=== PATIENT | female | born 1955 | race Caucasian/White ===

== ENCOUNTER 2020-11-07 13:50 | Outpatient (CLI) | payer OTHER, SELFPAY ==
--- NOTE | 2020-11-07 14:35 | CT_ITS ---
WS: [id number] LDCT LUNG CANCER SCREENING HISTORY: TOBACCO ABUSE TECHNIQUE: Axial imaging performed from the apices to 1 cm below the costophrenic angles. Coronal and sagittal reformats are submitted with axial MIP series. All CT scans at [facility] use at least one of these dose optimization techniques: automated exposure control; mA and/or kV adjustment per patient size (includes targeted exams where dose is matched to clinical indication); or iterativ e reconstruction. DLP: 51.42 mGy.cm DIvol: 1.58 mGy COMPARISON: 02/09/2018 Diagnostic quality: Satisfactory Lung Nodules: No pulmonary nodules or endobronchial lesions. Lungs: Mild emphysema. Heart: Normal. Other findings: None. CT/CT lung screening [id number] IMPRESSION: LUNG-RADS: 1-Negative FOLLOW UP: 12 Month: Continue annual screening with LDCT OTHER FINDINGS (S MODIFIER): None.
--- NOTE | 2020-11-07 15:07 | MM_ITS ---
WS: [email or web address] BILATERAL SCREENING DIGITAL MAMMOGRAM WITH CAD HISTORY: SCREENING COMPARISON: 06/08/2018 and 08/07/2013 Bilateral CC and MLO views submitted. Computer aided detection analyzed. Breast composition: There are scattered areas of fibroglandular density. No suspicious masses, microc alcifications or architectural distortion. MM/[id number] IMPRESSION: BI-RADS: 1-Negative FOLLOW UP: 1 Year Follow-up
== END 2020-11-07 13:51 | disposition home or self-care (01) ==
PROVIDERS: PCP Internal Medicine; Visit Provider Internal Medicine
DX: Z12.31 Encounter for screening mammogram for malignant neoplasm of breast (principal); Z12.2 Encounter for screening for malignant neoplasm of respiratory organs
CPT/HCPCS: 71271; 77067

== ENCOUNTER 2021-11-16 08:14 | Outpatient (CLI) | payer MEDICAID, SELFPAY ==
--- NOTE | 2021-11-16 08:21 | MM_ITS ---
WS: [email or web address] SCREENING DIGITAL TOMOSYNTHESIS MAMMOGRAM WITH CAD HISTORY: SCREENING COMPARISON: 11/07/2020 and 06/08/2018 Bilateral CC and MLO with tomosynthesis views submitted. Synthetic mammography reviewed. Computer aid ed detection analyzed. Breast composition: There are scattered areas of fibroglandular density. No suspicious masses, microc alcifications or architectural distortion. MM/[place] [id number] IMPRESSION: BI-RADS: 1-Negative FOLLOW UP: 1 Year Follow-up
--- NOTE | 2021-11-16 08:46 | CT_ITS ---
WS: [email or web address] LDCT LUNG CANCER SCREENING HISTORY: HX OF TOBACCO USE TECHNIQUE: Axial imaging performed from the apices to 1 cm below the costophrenic angles. Coronal and sagittal reformats are submitted with axial MIP series. All CT scans at [facility] use at least one of these dose optimization techniques: automated exposure control; mA and/or kV adjustment per patient size (includes targeted exams where dose is matched to clinical indication); or iterativ e reconstruction. DLP: 81.77 mGy.cm DIvol: Mean CTDIvol: 1.60 (mGy) COMPARISON: 11/07/2020, 02/09/2018 Diagnostic quality: Satisfactory Lung Nodules: 2 mm noncalcified nodule RIGHT upper lobe stable since 2018. No suspicious mass or enla rging mass or nodule. No endobronchial lesions. Lungs: Mild emphysema. Heart: Normal size heart. No pericardial effusion. Other findings: Partially calcified nodule RIGHT thyroid. No atherosclerosis aorta or enlargement. No adrenal mass. Prior cholecystectomy. CT/CT lung screening [id number] IMPRESSION: LUNG-RADS: 2-Benign Appearance or Behavior FOLLOW UP: 12 Month: Continue annual screening with LDCT OTHER FINDINGS (S MODIFIER): None.
== END 2021-11-16 08:15 | disposition home or self-care (01) ==
LOC: RAD 08:16
PROVIDERS: PCP Internal Medicine; Visit Provider Internal Medicine
DX: Z12.31 Encounter for screening mammogram for malignant neoplasm of breast (principal); Z12.2 Encounter for screening for malignant neoplasm of respiratory organs
CPT/HCPCS: 71271; 77063; 77067

== ENCOUNTER 2022-11-17 10:10 | Outpatient (CLI) | payer MEDICARE, SELFPAY ==
--- NOTE | 2022-11-17 10:23 | MM_ITS ---
WS: [email or web address] VIEWS: MLO and CC views both breasts. 3D digital tomosynthesis is also included in this exam. Comparison made with prior exam of 06/18/2005, 07/04/2007, 08/07/2013, 06/08/2018, 11/07/2020, 11/16/2021.. Findings: There was no sign of mass, architectural distortion or suspicious calcification in either breast. The breasts are almost entirely fatty. Impression: MM/[place] [id number] BI-RADS: 1-Negative FOLLOW-UP: 1 Year Follow-up This mammogram was also analyzed by the Computer Aided Detection System [employer] Im[employer] e Customer Support Consultant.
== END 2022-11-17 10:11 | disposition home or self-care (01) ==
PROVIDERS: PCP Internal Medicine; Visit Provider Internal Medicine
DX: Z12.31 Encounter for screening mammogram for malignant neoplasm of breast (principal)
CPT/HCPCS: 77063; 77067

== ENCOUNTER 2022-11-29 09:10 | Outpatient (CLI) | payer MEDICARE, SELFPAY ==
--- NOTE | 2022-11-29 09:29 | CT_ITS ---
WS: [email or web address] LDCT LUNG CANCER SCREENING TECHNIQUE: Noncontrast CT of the chest with coronal and sagittal reformatted images. CLINICAL INFORMATION: TOBACCO ABUSE, CONTINUOUS COMPARISON: CT 11/16/2021 DLP: 96.79 mGy.cm DIvol: Mean CTDIvol: 2.10 (mGy) All CT scans at [facility] use at least one of these dose optimization techniques: automat ed exposure control; mA and/or kV adjustment per patient size (includes targeted exams where dose is matched to clinical indication); or iterative reconstruction. FINDINGS: A few tiny stable noncalcified nodules RIGHT upper lobe. The largest measures approximately 3 mm unch anged. RIGHT middle lobe nodule measuring measuring 5 mm unchanged. Tiny subpleural nodule RIGHT lowe r lobe unchanged. A few tiny noncalcified nodules in the LEFT upper lobe and LEFT lower lobe unchange d. Calcified RIGHT thyroid nodule is stable. Normal caliber thoracic aorta. No mediastinal or hilar lymp hadenopathy. Cholecystectomy clips. Adrenal glands are normal. No axillary lymphadenopathy. IMPRESSION: CT/CT lung screening [id number] LUNG-RADS: 2-Benign Appearance or Behavior FOLLOW UP: 12 Month: Continue annual screening with LDCT
== END 2022-11-29 09:11 | disposition home or self-care (01) ==
PROVIDERS: PCP Internal Medicine; Visit Provider Internal Medicine
DX: Z12.2 Encounter for screening for malignant neoplasm of respiratory organs (principal); F17.210 Nicotine dependence, cigarettes, uncomplicated
CPT/HCPCS: 71271

== ENCOUNTER 2023-12-07 08:48 | Outpatient (CLI) | payer MEDICARE, SELFPAY ==
--- NOTE | 2023-12-07 08:55 | CT_ITS ---
WS: [email or web address] LDCT LUNG CANCER SCREENING HISTORY: NICOTINE DEPENDENCE,CIGARETTES TECHNIQUE: Axial imaging performed from the apices to 1 cm below the costophrenic angles. Coronal and sagittal reformats are submitted with axial MIP series. All CT scans at [facility] use at least one of these dose optimization techniques: automated exposure control; mA and/or kV adjustment per patient size (includes targeted exams where dose is matched to clinical indication); or iterativ e reconstruction. DLP: 83.51 mGy.cm DIvol: Mean CTDIvol: 2.00 (mGy) COMPARISON: 11/29/2022 Diagnostic quality: Satisfactory Lungs: There are a few scattered micronodules. 5 mm noncalcified nodule LEFT upper lobe. Reidentified is the 5 mm nodule in the periphery of the RIGHT middle lobe. No additional masses or increase in si ze of any mass. No endobronchial lesions. Heart: Normal size heart with no pericardial effusion.. No mediastinal or hilar adenopathy. Mild athe rosclerosis aorta. Other findings: Calcified RIGHT thyroid nodule 12 mm. Mild atherosclerosis aorta. Normal size pulmona ry artery. Small hiatal hernia. No destructive bone lesions. CT/CT lung screening [id number] IMPRESSION: LUNG-RADS: 2-Benign Appearance or Behavior FOLLOW UP: 12 Month: Continue annual screening with LDCT OTHER FINDINGS (S MODIFIER): None.
--- NOTE | 2023-12-07 08:55 | MM_ITS ---
WS: [email or web address] BILATERAL SCREENING DIGITAL TOMOSYNTHESIS MAMMOGRAM WITH CAD HISTORY: SCREENING COMPARISON: 11/17/2022, 11/16/2021 Bilateral CC and MLO views with tomosynthesis and synthetic mammography submitted. Computer aided det ection analyzed. Breast composition: There are scattered areas of fibroglandular density. No suspicious masses, microc alcifications or architectural distortion. MM/MM scr BI tomosynthesis [id number] IMPRESSION: BI-RADS: 1 - Negative. FOLLOW UP: 1 Year Follow-up
== END 2023-12-07 08:49 | disposition home or self-care (01) ==
LOC: RAD 08:49
PROVIDERS: PCP Internal Medicine; Visit Provider Internal Medicine
DX: Z12.31 Encounter for screening mammogram for malignant neoplasm of breast (principal); F17.210 Nicotine dependence, cigarettes, uncomplicated; R91.8 Other nonspecific abnormal finding of lung field
CPT/HCPCS: 71271; 77063; 77067

== ENCOUNTER 2024-02-27 13:48 | Inpatient (IN) | payer MEDICARE, SELFPAY ==
[2024-02-27] VITALS (10 sets, daily range): BP systolic 93–125; BP diastolic 53–104; PULSE 90–158; RESP 18; TEMP 36.8–38.6; O2SAT 93–99; BMI 33.5
--- NOTE | 2024-02-27 14:47 | ED_ITS ---
Documented by User: DIANA Crocker 02/27/24 16:53 HPI - General Adult 2 General: Chief complaint: Urogenital-Female Stated complaint: fever,n,v,boil, possible uti? Time Seen by Provider: 02/27/24 14:33 Source: patient Mode of arrival: ambulatory Limitations: no limitations History of Present Illness: Patient is a 68-year-old female presents to ED today along with family for concerns of a possible urinary tract infection. She is complaining of burning with urination. Has been on cefuroxime on 01/15 and macrobid 01/31 for two weeks. These were treated through [facility]. They also have a separate complaint of a possible boil to her perineal region. She states 6 years ago she had multiple boils that required surgical drainage. She states she squeezed the lesion yesterday and noticed output/discharge. Patient is complaining of diffuse body aches, fever yesterday of 101-afebrile since, and chills. She has no URI-like symptoms. No abdominal pain. She has not had any vomiting or diarrhea. She was slightly tachycardic upon arrival. Does have some back pain she's been uring a heating pad for. Onset (ago): day(s) Location: genitals Severity: mild Relieving factors: none Exacerbating factors: other (urination) Associated symptoms: Reports no associated symptoms; Deny chest pain, dyspnea, headache(s), malaise, nausea or vomiting Treatments prior to arrival: none Related Data Home Medications Medication Instructions Recorded Confirmed atorvastatin 80 mg tablet 80 mg PO DAILY 02/27/24 02/27/24 bupropion HCl 150 mg 24 hr tablet, 150 mg PO QAM 02/27/24 02/27/24 extended release exenatide microspheres 2 mg/0.85 2 mg SUBCUT Q7D 02/27/24 02/27/24 mL subcutaneous auto-injector (Bydeidra Raphael) hydroxyzine HCl 50 mg tablet 50 mg PO TID 02/27/24 02/27/24 insulin glargine 100 unit/mL (3 28 unit SUBCUT QPM 02/27/24 02/27/24 mL) subcutaneous pen (Lantus Solostar U-100 Insulin) lisinopril 2.5 mg tablet 2.5 mg PO DAILY 02/27/24 02/27/24 metformin 500 mg tablet,extended 500 mg PO TID 02/27/24 02/27/24 release 24 hr Allergies Allergy/AdvReac Type Severity Reaction Status Date / Time No Known Allergies Allergy Verified 02/27/24 14:18 Review of Systems 2 Const: Reports: fever(s), chills and body aches; Denies: fatigue or malaise ENMT: Denies: throat pain, odynophagia, ear or mastoid pain, nasal discharge, nasal congestion or sinus pain Card: Denies: chest pain Resp: Denies: dyspnea, productive cough, non-productive cough or chest congestion GI: Denies: abdominal pain, nausea, vomiting or diarrhea : Denies: flank pain, difficulty voiding, dysuria, urinary frequency, urinary urgency or urinary hesitancy Musc: Denies: neck pain, back pain, extremity pain, extremity swelling, joint pain or joint swelling Skin/Breast: Reports: other (perineal boil ) Neuro: Denies: headache(s), numbness in extremities, weakness in extremities or sensory changes PFSH ED 2 PFSH: Family History Mother CAD (coronary artery disease) Diabetes Father , AT AGE 72 ALCOHOLISM Chronic kidney disease (CKD) Brother Cancer LUNG CANCER Sister Cancer THROAT CANCER Social History Smoking and tobacco/nicotine status: light tobacco/nicotine user e-cigarettes Alcohol intake: unknown Substance/Drug Use: unknown Adopted: No Caregiver/support person: No Lives independently: No Household members: spouse Marital status: Current occupational status: employed Physical Exam 2 Const: COMMON NORMALS: no acute distress, patient oriented x3, no limitations and alert GENERAL APPEARANCE: cooperative ORIENTATION/CONSCIOUSNESS: Yes awake, Yes oriented to person, Yes oriented to place and Yes oriented to time Eye: COMMON NORMALS: no scleral icterus Neck/C-Spine: COMMON NORMALS: no lymphadenopathy Resp: COMMON NORMALS: normal respiratory effort and clear to auscultation bilaterally AUSCULTATION: clear to auscultation bilaterally Cardio: COMMON NORMALS: regular rate and regular rhythm RATE: regular rate RHYTHM: regular rhythm GI: COMMON NORMALS: Normal to inspection, nondistended, normoactive bowel sounds present, Soft to palpation and non-tender PALPATION: Yes Soft to palpation : COMMON NORMALS: Yes no CVA tenderness BLADDER/KIDNEY EXAM: Yes no CVA tenderness OTHER: large amount of scar tissue from previous surgeries 6 years ago; some vaginal atrophy; she points to an area on R labia majora that is tender-small fissure like area but I do not appreciate any obvious fluctuance/abscess formation Back/Pelvis: COMMON NORMALS: no CVA tenderness Extremity: GENERAL: Yes normal exam except as noted Neuro: COMMON NORMALS: patient oriented x3 SENSORIUM/ORIENTATION: Yes alert, Yes oriented to person, Yes oriented to place and Yes oriented to time Course 2 Vital Signs: Vital signs: Vital Signs Temperature 98.2 F 02/27/24 14:13 Pulse Rate 96 02/27/24 17:30 Respiratory Rate 18 02/27/24 14:13 Blood Pressure 118/61 02/27/24 17:30 Pulse Oximetry 96 02/27/24 17:30 Oxygen Delivery Me thod Room Air 02/27/24 17:30 MDM - General Adult Medical Decision Making Patient is a 68-year-old female here with complaints of burning with urination as well as for possible perineal abscess. I do not appreciate any obvious abscess clinically. UA with significant color interference from Azo use this morning. It does have a cloudy appearance with too numerous to count WBCs and 4+ bacteria. Her blood work overall is nonactionable. Her vital signs had remained stable during her stay and I had originally planned on discharging her. During repeat examination I noted blood pressure to be low with systolics anywhere from 80s-90s and diastolics in the 50s-60s. Will have RN check manual. Tried to attempt most recent UA cultures from [facility] but they are closed for holidays. Will add a lactate and blood cultures and start IV abx. Started IV fluids as well. Adding CT scan at this time. Care transferred to Rashad Nunez PA-C at shift change. ES Lab Data 02/27/24 15:37 02/27/24 15:37 Radiology Impressions Abdomen/Pelvis CT 02/27/24 16:40 IMPRESSION: 1. Findings above regarding the left kidney concerning for pyelonephritis and cystitis. Correlate with urinalysis to exclude cystitis/pyelonephritis combination. 2. Findings involving the central small bowel loops concerning for enteritis without evidence of bowel obstruction. 3. Incidental/chronic findings as above. COMMENTS: Consistent with the [place]'s Incidental Findings Committee white paper (J Am Tariq Radiol 2018): Any incidental renal lesion less than 1 cm or classified as too small to characterize, or any incidental cystic renal lesion characterized as simple-appearing, is likely benign. No follow-up imaging is recommended for these lesions per consensus recommendations based on imaging criteria. Laboratory Results WBC 12.52 10^3/uL (3.29-11.43) H 02/27/24 15:37 RBC 4.46 10^6/uL (3.85-5.65) 02/27/24 15:37 Hgb 10.40 g/dL (11.27-16.99) L 02/27/24 15:37 Hct 32.6 % (36-47) L 02/27/24 15:37 MCV 73.1 fl (85-98) L 02/27/24 15:37 MCH 23.3 pg (27-33) L 02/27/24 15:37 MCHC 31.9 g/dL (30-55) 02/27/24 15:37 RDW 19.0 % (12.1-15.1) H 02/27/24 15:37 Plt Count 368 10^3/cmm (157-399) 02/27/24 15:37 MPV 9.2 fL (7.4-10.4) 02/27/24 15:37 Neut % (Auto) 81.4 % 02/27/24 15:37 Lymph % (Auto) 7.3 % 02/27/24 15:37 [place] % (Auto) 10.0 % 02/27/24 15:37 Eos % (Auto) 0.3 % 02/27/24 15:37 Baso % (Auto) 0.6 % 02/27/24 15:37 Neut # (Auto) 10.20 10^3/uL (1.8-7.7) H 02/27/24 15:37 Lymph # (Auto) 0.9 10^3/uL (0.8-4.8) 02/27/24 15:37 [place] # (Auto) 1.3 10^3/uL (0.2-0.9) H 02/27/24 15:37 Eos # (Auto) 0.0 10^3/uL (0.0-0.8) 02/27/24 15:37 Baso # (Auto) 0.1 10^3/uL (0.0-0.1) 02/27/24 15:37 Nucleated RBC % (auto) 0 % 02/27/24 15:37 Nucleated RBCs # 0.0 /100WBC 02/27/24 15:37 Sodium 132 mmol/L (136-145) L 02/27/24 15:37 Potassium 3.3 mmol/L (3.5-5.1) L 02/27/24 15:37 Chloride 98 mmol/L (98-107) 02/27/24 15:37 Carbon Dioxide 22 mmol/L (22-29) 02/27/24 15:37 Anion Gap 15.3 (5-19) 02/27/24 15:37 BUN 12 mg/dL (8-23) 02/27/24 15:37 Creatinine 0.8 mg/dL (0.5-0.9) 02/27/24 15:37 GFR Calculation 71.8 mL/min (90-130) L 02/27/24 15:37 Glucose 128 mg/dL (65-115) H 02/27/24 15:37 Calculated Osmolality 275 mOsm/kg (285-295) L 02/27/24 15:37 Lactic Acid 1.3 mmol/L (0.5-2.2) 02/27/24 15:37 Calcium 8.9 mg/dL (8.5-10.5) 02/27/24 15:37 Total Bilirubin 0.7 mg/dL (0.15-1.2) 02/27/24 15:37 AST 14 U/L (0-32) 02/27/24 15:37 ALT 14 U/L (0-33) 02/27/24 15:37 Alkaline Phosphatase 138 U/L (35-105) H 02/27/24 15:37 Total Protein 7.3 g/dL (6.6-8.7) 02/27/24 15:37 Albumin 3.9 g/dL (3.5-5.2) 02/27/24 15:37 Globulin 3.4 g/dL (1.3-4.6) 02/27/24 15:[address] [place] (Yellow) A 02/27/24 14:40 Urine Appearance Slightly cloudy (CLEAR) 02/27/24 14:40 Urine pH TNP 02/27/24 14:40 Ur Specific [place] TNP 02/27/24 14:40 Urine Protein TNP 02/27/24 14:40 Urine Glucose (UA) TNP 02/27/24 14:40 Urine Ketones TNP 02/27/24 14:40 Urine Blood TNP 02/27/24 14:40 Urine Nitrate TNP 02/27/24 14:40 Urine Bilirubin TNP 02/27/24 14:40 Urine Urobilinogen TNP 02/27/24 14:40 Ur Leukocyte Esterase TNP 02/27/24 14:40 Urine RBC None /hpf (0-2) 02/27/24 14:40 Urine WBC Too numerous to cnt /hpf (0-5) H 02/27/24 14:40 Ur Squamous Epith Cells None /hpf (0-5) 02/27/24 14:40 Amorphous Sediment Not Reportable 02/27/24 14:40 Urine Bacteria 4+ /hpf (NONE) H 02/27/24 14:40 Coronavirus (PCR) Negative (Negative) 02/27/24 14:53 Influenza A (PCR) Negative (Negative) 02/27/24 14:53 Influenza Type B (PCR) Negative (Negative) 02/27/24 14:53 RSV (PCR) Negative (Negative) 02/27/24 14:53 Discharge Plan Discharge Patient Disposition: Placed in Observation Clinical Impression: Acute pyelonephritis Sign Out Sign Out Data: Patient Sign Out occurred on 02/27/24 at 17:07. Patient's care was discussed, and care was transferred from DIANA Crocker to DIANA Arnett. Coding Level of Care Code ED Billing Representative for Chg Fwd Documented by User: DIANA Arnett 02/27/24 18:46 HPI - General Adult 2 General: Chief complaint: Urogenital-Female Stated complaint: fever,n,v,boil, possible uti? Time Seen by Provider: 02/27/24 14:33 Related Data Home Medications Medication Instructions Recorded Confirmed atorvastatin 80 mg tablet 80 mg PO DAILY 02/27/24 02/27/24 bupropion HCl 150 mg 24 hr tablet, 150 mg PO QAM 02/27/24 02/27/24 extended release exenatide microspheres 2 mg/0.85 2 mg SUBCUT Q7D 02/27/24 02/27/24 mL subcutaneous auto-injector (Bydureon BCise) hydroxyzine HCl 50 mg tablet 50 mg PO TID 02/27/24 02/27/24 insulin glargine 100 unit/mL (3 28 unit SUBCUT QPM 02/27/24 02/27/24 mL) subcutaneous pen (Lantus Solostar U-100 Insulin) lisinopril 2.5 mg tablet 2.5 mg PO DAILY 02/27/24 02/27/24 metformin 500 mg tablet,extended 500 mg PO TID 02/27/24 02/27/24 release 24 hr Allergies Allergy/AdvReac Type Severity Reaction Status Date / Time No Known Allergies Allergy Verified 02/27/24 14:18 PFSH ED 2 PFSH: Family History Mother CAD (coronary artery disease) Diabetes Father , AT AGE 72 ALCOHOLISM Chronic kidney disease (CKD) Brother Cancer LUNG CANCER Sister Cancer THROAT CANCER Social History Smoking and tobacco/nicotine status: light tobacco/nicotine user e-cigarettes Alcohol intake: unknown Substance/Drug Use: unknown Adopted: No Caregiver/support person: No Lives independently: No Household members: spouse Marital status: Current occupational status: employed Course 2 Vital Signs: Vital signs: Vital Signs Temperature 98.2 F 02/27/24 14:13 Pulse Rate 96 02/27/24 17:30 Respiratory Rate 18 02/27/24 14:13 Blood Pressure 118/61 02/27/24 17:30 Pulse Oximetry 96 02/27/24 17:30 Oxygen Delivery Me thod Room Air 02/27/24 17:30 MDM - General Adult Medical Decision Making Patient is a 68-year-old female here with complaints of burning with urination as well as for possible perineal abscess. I do not appreciate any obvious abscess clinically. UA with significant color interference from Azo use this morning. It does have a cloudy appearance with too numerous to count WBCs and 4+ bacteria. Her blood work overall is nonactionable. Her vital signs had remained stable during her stay and I had originally planned on discharging her. During repeat examination I noted blood pressure to be low with systolics anywhere from 80s-90s and diastolics in the 50s-60s. Will have RN check manual. Tried to attempt most recent UA cultures from [facility] but they are closed for holidays. Will add a lactate and blood cultures and start IV abx. Started IV fluids as well. Adding CT scan at this time. Care transferred to Rashad Nunez PA-C at shift change. ES Care of patient transferred me by dayshift provider. This patient has had recurrent UTI failing treatment with Ceftin as well as Macrobid. Prior to discharge she was found to be hypotensive, with continuing tachycardia. Further workup ensued, her lactic was normal but she was started on sepsis bolus of fluids as well as Rocephin through her IV. CT was ordered showing signs of a pyelonephritis, failing outpatient therapy I spoke to Dr. Tovar who agrees to accept the patient to the hospital for IV antibiotics and further monitoring. Patient agrees with plan for admission and all other questions and concerns addressed. Dr. Koehler putting in admit orders at this time. Lab Data 02/27/24 15:37 02/27/24 15:37 Radiology Impressions Abdomen/Pelvis CT 02/27/24 16:40 IMPRESSION: 1. Findings above regarding the left kidney concerning for pyelonephritis and cystitis. Correlate with urinalysis to exclude cystitis/pyelonephritis combination. 2. Findings involving the central small bowel loops concerning for enteritis without evidence of bowel obstruction. 3. Incidental/chronic findings as above. COMMENTS: Consistent with the [place] [employer]'s Incidental Findings Committee white paper (J Am Tariq Radiol 2018): Any incidental renal lesion less than 1 cm or classified as too small to characterize, or any incidental cystic renal lesion characterized as simple-appearing, is likely benign. No follow-up imaging is recommended for these lesions per consensus recommendations based on imaging criteria. Laboratory Results WBC 12.52 10^3/uL (3.29-11.43) H 02/27/24 15:37 RBC 4.46 10^6/uL (3.85-5.65) 02/27/24 15:37 Hgb 10.40 g/dL (11.27-16.99) L 02/27/24 15:37 Hct 32.6 % (36-47) L 02/27/24 15:37 MCV 73.1 fl (85-98) L 02/27/24 15:37 MCH 23.3 pg (27-33) L 02/27/24 15:37 MCHC 31.9 g/dL (30-55) 02/27/24 15:37 RDW 19.0 % (12.1-15.1) H 02/27/24 15:37 Plt Count 368 10^3/cmm (157-399) 02/27/24 15:37 MPV 9.2 fL (7.4-10.4) 02/27/24 15:37 Neut % (Auto) 81.4 % 02/27/24 15:37 Lymph % (Auto) 7.3 % 02/27/24 15:37 [place] % (Auto) 10.0 % 02/27/24 15:37 Eos % (Auto) 0.3 % 02/27/24 15:37 Baso % (Auto) 0.6 % 02/27/24 15:37 Neut # (Auto) 10.20 10^3/uL (1.8-7.7) H 02/27/24 15:37 Lymph # (Auto) 0.9 10^3/uL (0.8-4.8) 02/27/24 15:37 [place] # (Auto) 1.3 10^3/uL (0.2-0.9) H 02/27/24 15:37 Eos # (Auto) 0.0 10^3/uL (0.0-0.8) 02/27/24 15:37 Baso # (Auto) 0.1 10^3/uL (0.0-0.1) 02/27/24 15:37 Nucleated RBC % (auto) 0 % 02/27/24 15:37 Nucleated RBCs # 0.0 /100WBC 02/27/24 15:37 Sodium 132 mmol/L (136-145) L 02/27/24 15:37 Potassium 3.3 mmol/L (3.5-5.1) L 02/27/24 15:37 Chloride 98 mmol/L (98-107) 02/27/24 15:37 Carbon Dioxide 22 mmol/L (22-29) 02/27/24 15:37 Anion Gap 15.3 (5-19) 02/27/24 15:37 BUN 12 mg/dL (8-23) 02/27/24 15:37 Creatinine 0.8 mg/dL (0.5-0.9) 02/27/24 15:37 GFR Calculation 71.8 mL/min (90-130) L 02/27/24 15:37 Glucose 128 mg/dL (65-115) H 02/27/24 15:37 Calculated Osmolality 275 mOsm/kg (285-295) L 02/27/24 15:37 Lactic Acid 1.3 mmol/L (0.5-2.2) 02/27/24 15:37 Calcium 8.9 mg/dL (8.5-10.5) 02/27/24 15:37 Total Bilirubin 0.7 mg/dL (0.15-1.2) 02/27/24 15:37 AST 14 U/L (0-32) 02/27/24 15:37 ALT 14 U/L (0-33) 02/27/24 15:37 Alkaline Phosphatase 138 U/L (35-105) H 02/27/24 15:37 Total Protein 7.3 g/dL (6.6-8.7) 02/27/24 15:37 Albumin 3.9 g/dL (3.5-5.2) 02/27/24 15:37 Globulin 3.4 g/dL (1.3-4.6) 02/27/24 15:[address] [place] (Yellow) A 02/27/24 14:40 Urine Appearance Slightly cloudy (CLEAR) 02/27/24 14:40 Urine pH TNP 02/27/24 14:40 Ur Specific [place] TNP 02/27/24 14:40 Urine Protein TNP 02/27/24 14:40 Urine Glucose (UA) TNP 02/27/24 14:40 Urine Ketones TNP 02/27/24 14:40 Urine Blood TNP 02/27/24 14:40 Urine Nitrate TNP 02/27/24 14:40 Urine Bilirubin TNP 02/27/24 14:40 Urine Urobilinogen TNP 02/27/24 14:40 Ur Leukocyte Esterase TNP 02/27/24 14:40 Urine RBC None /hpf (0-2) 02/27/24 14:40 Urine WBC Too numerous to cnt /hpf (0-5) H 02/27/24 14:40 Ur Squamous Epith Cells None /hpf (0-5) 02/27/24 14:40 Amorphous Sediment Not Reportable 02/27/24 14:40 Urine Bacteria 4+ /hpf (NONE) H 02/27/24 14:40 Coronavirus (PCR) Negative (Negative) 02/27/24 14:53 Influenza A (PCR) Negative (Negative) 02/27/24 14:53 Influenza Type B (PCR) Negative (Negative) 02/27/24 14:53 RSV (PCR) Negative (Negative) 02/27/24 14:53 All radiology interpretation(s) finalized by discharge Discharge Plan Discharge Patient Disposition: Placed in Observation Clinical Impression: Acute pyelonephritis Sign Out Sign Out Data: Patient Sign Out occurred on 02/27/24 at 17:07. Patient's care was discussed, and care was transferred from DIANA Crocker to DIANA Arnett. Coding Level of Care Code ED Billing Representative for Yohannes Hamlin
[2024-02-27 15:40] LABS: Urine Appearance Slightly Cloudy (CLEAR); Urine Color Orange (Yellow)
[2024-02-27 15:41] LABS: Add Urine Culture? Yes; Add Urine Microscopic? YES; Bacteria Urine 4+ /hpf; UA Manual Slide Review YES; WBC Urine TOO NUMEROUS TO CNT /hpf (0-5)
[2024-02-27 16:06] LABS: Basophils # 0.1 10^3/uL (0.0-0.1); Basophils % 0.6 %; Eosinophils % 0.3 %; Hematocrit 32.6 % (36-47); Lymphocytes # 0.9 10^3/uL (0.8-4.8); Lymphocytes % 7.3 %; Mean Corpuscular HGB Conc 31.9 g/dL (30-55); Mean Corpuscular Hemoglobin 23.3 pg (27-33); Mean Corpuscular Volume 73.1 fl (85-98); Mean Platelet Volume 9.2 fL (7.4-10.4); Monocytes # 1.3 10^3/uL (0.2-0.9); Neutrophils % 81.4 %; Nucleated Red Blood Cells % 0 %; Platelet Count 368 10^3/cmm (157-399); Red Blood Count 4.46 10^6/uL (3.85-5.65); White Blood Count 12.52 10^3/uL (3.29-11.43)
[2024-02-27 16:10] LABS: Covid PCR NEGATIVE (Negative); Influenza A NEGATIVE (Negative); Influenza B NEGATIVE (Negative); Respiratory Syncytial Virus Ce NEGATIVE (Negative)
[2024-02-27 16:19] LABS: Alanine Aminotransferase 14 U/L (0-33); Albumin Level 3.9 g/dL (3.5-5.2); Alkaline Phosphatase 138 U/L (35-105); Anion Gap 15.3 (5-19); Aspartate Amino Transferase 14 U/L (0-32); Blood Urea Nitrogen 12 mg/dL (8-23); Calcium 8.9 mg/dL (8.5-10.5); Carbon Dioxide 22 mmol/L (22-29); Chloride 98 mmol/L (98-107); Creatinine Clr Calc Pharmacy 74.4758; Globulin 3.4 g/dL (1.3-4.6); Glomerular Filtration Rate 71.8 mL/min (90-130); Glucose 128 mg/dL (65-115); Osmolality Calculated 275 mOsm/kg (285-295); Potassium 3.3 mmol/L (3.5-5.1); Sodium 132 mmol/L (136-145); Total Bilirubin 0.7 mg/dL (0.15-1.2); Total Protein 7.3 g/dL (6.6-8.7)
--- NOTE | 2024-02-27 16:40 | CTR_ITS ---
PROCEDURE INFORMATION: Exam: CT Abdomen And Pelvis With Contrast Exam date and time: 02/27/2024 5:07 PM Age: 68 years old Clinical indication: Abdominal pain; Generalized; Prior surgery; Surgery date: 6+ months; Surgery type: Hysterectomy, gb, hernia, colon; Additional info: Fevers, UTI symptoms, low BP, back pain, perineal abscess? TECHNIQUE: Imaging protocol: Computed tomography of the abdomen and pelvis with contrast. Radiation optimization: All CT scans at this facility use at least one of these dose optimization techniques: automated exposure control; mA and/or kV adjustment per patient size (includes targeted exams where dose is matched to clinical indication); or iterative reconstruction. Contrast material: OMNIPAQUE 350; Contrast volume: 100 ml; Contrast route: INTRAVENOUS (IV); COMPARISON: CT chest abdpel w/*[id number] 02/09/2018 2:31 PM RADIATION DOSE METRICS: Total DLP (mGy-cm): 674.13 FINDINGS: Tubes, catheters and devices: Postsurgical changes of hernia mesh repair. Liver: Normal. No mass. Gallbladder and biliary ducts: Gallbladder is surgically absent. Pancreas: Normal. No ductal dilation. Spleen: Normal. No splenomegaly. Adrenal glands: Normal. No mass. Kidneys and ureters: Bilateral renal cysts. No nephroureterolithiasis. No hydronephrosis. Patchy attenuation of the left kidney compared to the right. Stomach and bowel: Postsurgical changes of the rectosigmoid junction. Colonic diverticulosis. No bowel obstruction. There is a couple of centralized small bowel loops that demonstrates some wall thickening and some dilatation without evidence of high-grade mechanical bowel obstruction. Appendix: Normal appendix. Intraperitoneal space: No free air or free fluid. Vasculature: Unremarkable. No abdominal aortic aneurysm. Lymph nodes: Unremarkable. No enlarged lymph nodes. Urinary bladder: Urinary bladder wall thickening. Reproductive: Postsurgical changes of likely probable partial hysterectomy. Bones/joints: Unremarkable. No acute fracture. Soft tissues: Unremarkable. CT/CT abdomen pelvis w con* [id number] IMPRESSION: 1. Findings above regarding the left kidney concerning for pyelonephritis and cystitis. Correlate with urinalysis to exclude cystitis/pyelonephritis combination. 2. Findings involving the central small bowel loops concerning for enteritis without evidence of bowel obstruction. 3. Incidental/chronic findings as above. COMMENTS: Consistent with the [employer]'s Incidental Findings Committee white paper (J Am Tariq Radiol 2018): Any incidental renal lesion less than 1 cm or classified as too small to characterize, or any incidental cystic renal lesion characterized as simple-appearing, is likely benign. No follow-up imaging is recommended for these lesions per consensus recommendations based on imaging criteria.
[2024-02-27] MEDS: iohexol 350 mg/mL 500 mL Btl (per mL) IV (17:09)
[2024-02-27 17:11] LABS: Lactic Sepsis W/Reflex 1.3 mmol/L (0.5-2.2)
[2024-02-27] MEDS: cefTRIAXone 1,000 mg SDV 1000 MG IVP (17:29)
[2024-02-27] MEDS: sodium chloride 0.9% 1,000 ML 999 ML IV ×3 (17:29→22:53)
--- NOTE | 2024-02-27 18:38 | P.HP_ITS ---
Providers/Chief Complaint 2 Primary Care Provider: Shirley Guerra MD Chief Complaint: fever,n,v,boil, possible uti? History of Present Illness Rachel Chawla is a 68 year old female with past medical history of hypertension, type 2 diabetes mellitus, recurrent UTIs who has been worked up as an outpatient and needs to follow-up with urology presents to the ER today because of dysuria, chills, fever which has been ongoing for last 5 days worsening for last 2 days along with back pain which started yesterday. As per patient she has been having fever with chills for the past 2 days. She has had multiple episodes of UTI since October 2023 for which she has been on multiple antibiotics. Most recently she has been on cefdinir and Bactrim. In the ER CT on pelvis was done which was concerning for left pyelonephritis hence medicine was consulted. On examination patient is laying in bed distress because of shivering, complaining of feeling cold. Review of Systems 2 General: Reports: 10 or more systems reviewed and unremarkable except in HPI and below Const: Denies: fever(s), chills, body aches, change in appetite, change in weight, malaise, night sweats, diaphoresis, change in sleep pattern, daytime sleepiness or snoring Eyes: Denies: change in vision, blurry vision, photophobia, eye discomfort or eye discharge ENMT: Denies: throat pain, enlarged tonsils, hoarseness, mouth pain, oral sores, dry mouth, tinnitus, nasal congestion or post nasal drip Card: Denies: chest pain, palpitations, irregular heart rhythm, edema, swelling of feet/ankles, lightheadedness, syncope, pre-syncope, dyspnea on exertion, orthopnea, leg pain with exertion or acrocyanosis Resp: Denies: dyspnea, productive cough, non-productive cough, wheezing, stridor, pain on inspiration, change in phlegm color, hemoptysis or chest congestion GI: Denies: abdominal pain, nausea, vomiting, hematemesis, coffee ground emesis, dysphagia, heartburn, diarrhea, constipation, bloating, GI cramping, change in bowel habits, pain on defecation, hematochezia or melena : Denies: flank pain, dysuria, urinary frequency, urinary urgency, urinary hesitancy, nocturia or hematuria Musc: Denies: neck pain, back pain, extremity pain, joint pain, joint swelling, joint redness, joint stiffness or limited range of motion Neuro: Denies: headache(s), numbness in extremities, weakness in extremities, sensory changes, lack of coordination, difficulty walking, frequent falls, dizziness, vertigo, confusion, Slurred speech present, difficulty communicating thoughts or seizure-like activity Psych: Denies: anxiety, depression, mood swings, panic attacks, hopelessness or irritability Endo: Denies: polyuria, polydipsia, tired all the time, cold intolerance, excessive sweating, flushing or heat intolerance Adrián/Lymph: Denies: easy bruising or easy bleeding All/Imm: Denies: tongue swelling, facial swelling or acute wheezing Medications/Allergies Home Medications Medication Instructions Recorded Confirmed Last Taken Type atorvastatin 80 mg tablet 80 mg PO DAILY 02/27/24 02/27/24 Unknown History bupropion HCl 150 mg 24 hr tablet, 150 mg PO QAM 02/27/24 02/27/24 Unknown History extended release exenatide microspheres 2 mg/0.85 2 mg SUBCUT Q7D 02/27/24 02/27/24 Unknown History mL subcutaneous auto-injector (ByMahalose) hydroxyzine HCl 50 mg tablet 50 mg PO TID 02/27/24 02/27/24 Unknown History insulin glargine 100 unit/mL (3 28 unit SUBCUT QPM 02/27/24 02/27/24 Unknown History mL) subcutaneous pen (Lantus Solostar U-100 Insulin) lisinopril 2.5 mg tablet 2.5 mg PO DAILY 02/27/24 02/27/24 Unknown History metformin 500 mg tablet,extended 500 mg PO TID 02/27/24 02/27/24 Unknown History release 24 hr Allergies Allergy/AdvReac Type Severity Reaction Status Date / Time No Known Allergies Allergy Verified 02/27/24 14:18 PFSH Acute 2 PFSH: Medical History (Updated 02/27/24 @ 19:09 by Quan Suarez MD) Recurrent UTI Urinary incontinence Pyelonephritis Urinary retention Surgical History (Updated 02/27/24 @ 19:09 by Quan Suarez MD) Hx of hernia repair Hx of hysterectomy Family History Mother CAD (coronary artery disease) Diabetes Father , AT AGE 72 ALCOHOLISM Chronic kidney disease (CKD) Brother Cancer LUNG CANCER Sister Cancer THROAT CANCER Social History Smoking and tobacco/nicotine status: light tobacco/nicotine user e-cigarettes Alcohol intake: unknown Substance/Drug Use: unknown Adopted: No Caregiver/support person: No Lives independently: No Household members: spouse Marital status: Current occupational status: employed Vitals/I&O/Wt Last Vital Signs Temp 98.2 F 02/27/24 14:13 Pulse 96 02/27/24 17:30 Resp 18 02/27/24 14:13 BP 118/61 02/27/24 17:30 Pulse Ox 96 02/27/24 17:30 O2 Del Method Room Air 02/27/24 17:30 Weight last 48 hrs Weight 88.451 kg Physical Exam 2 Narrative: General: In distress because of shivering and feeling cold, AO x 3 HEENT: PERRLA, pupils bilaterally equal and reactive Chest: Normal vesicular breath sounds, no added sounds, equal good air entry bilaterally CVS: S1-S2 regular, no murmurs, no tachycardia, no gallops, no rubs Abdomen: Soft, nontender, no organomegaly, bowel sounds present, renal angle tenderness on the left side Neuro: No focal deficits, no facial deformity, AO x3, power 5/5 in all limbs Data 02/27/24 15:37 02/27/24 15:37 A&P Assessment and plan (1) Sepsis: SIRS: Tachycardic, Febrile, Leukocytosis Source: Left pyelonephritis End organ damage: Hypotension Lactic acid within normal limits Patient did receive full sepsis bolus of 30 mL/kg body weight fluid. Continue normal saline 75 cc/h. Monitor blood pressures. Keep mean artery pressure 65 mmHg. Check blood culture, urine culture, MRSA swab, trend procalcitonin, bacterial antigen. (2) Acute pyelonephritis: With failure of outpatient treatment. Concern for left-sided pyelonephritis. Recurrent UTI as an outpatient. Recently on cefdinir and Bactrim. Most likely patient's urine culture will be sterile as she has been on multiple antibiotics recently. For now as patient has been on multiple antibiotics we will start on broad- spectrum antibiotics with IV meropenem. De-escalate as per culture results. (3) Failure of outpatient treatment: Plan Type 2 diabetes mellitus: Continue home dose of Lantus. Low-dose protocol insulin. Check A1c. Full code Carb consistent diet Famotidine for PUD prophylaxis Heparin 5000 Q8 hourly for DVT prophylaxis Attestations 2 Medical Necessity Statement*: Admit for more than 2 midnights for management of left-sided perinephritis in a patient with recurrent UTI, failure to outpatient treatment, sepsis Diagnoses Sepsis A41.9 Acute pyelonephritis N10 Failure of outpatient treatment Z78.9
[2024-02-27 19:08] LABS: Procalcitonin 1.66 ng/mL (0-0.5)
--- NOTE | 2024-02-27 19:11 | XRR_ITS ---
PROCEDURE INFORMATION: Exam: XR Chest Exam date and time: 02/27/2024 7:33 PM Age: 68 years old Clinical indication: Other: Sepsis; Additional info: Possible sepsis TECHNIQUE: Imaging protocol: Radiologic exam of the chest. Views: 1 view. COMPARISON: CT lung screening [id number] 12/07/2023 9:14 AM FINDINGS: Lungs: Unremarkable. No consolidation. Pleural spaces: Unremarkable. No pleural effusion. No pneumothorax. Heart/Mediastinum: Unremarkable. No cardiomegaly. Bones/joints: Unremarkable. XR/XR chest 1V portable [id number] IMPRESSION: No acute findings.
[2024-02-27] MEDS: acetaminophen 1,000 MG/100 ML PIGGYBACK 400 MG IV (19:13)
[2024-02-27 20:25] LABS: Glucose Point of Care 246 mg/dL (70-110)
--- NOTE | 2024-02-27 21:44 | ECG_ITS ---
[facility] Date: 2024-02-27 Pat Name: Rachel Chawla Department: Room: 277 Gender: Female Business Services Vice President: : 1955 Requested By: Quan Suarez Order Number: [id number] Reading MD: Juliet Messer M.D. Measurements Intervals [place] Rate: 94 P: 9 WI: 124 QRS: 51 QRSD: 99 T: 43 QT: 382 QTc: 479 Interpretive Statements SINUS RHYTHM WITH OCCASIONAL VENTRICULAR PREMATURE COMPLEXES NONSPECIFIC ST & T-WAVE ABNORMALITY No previous ECG available for comparison Electronically Signed On 02-28-2024 22:07:14 CHIEF OF PLANNING by Juliet Messer M.D. [email or web address]
[2024-02-27 22:22] LABS: Bilirubin Urine 1+ (Negative); Blood Urine 2+ (Negative); Glucose Urine UA Negative (Normal); Ketones Urine Negative (Negative); Leukocyte Esterase Urine 2+ (Negative); Nitrate Urine Positive (Negative); Protein Urine 1+ (Negative); Urine Appearance Turbid (CLEAR); Urine Color Dark Yellow (Yellow)
[2024-02-27 22:27] LABS: Add Urine Microscopic? YES; Bacteria Urine None Seen /hpf; Squamous Epithelial Cell Urine 0-5 /hpf (0-5); WBC Urine >100 /hpf (0-5)
[2024-02-27] MEDS: insulin lispro 100 unit/1 mL SUBCUT (22:31)
[2024-02-27] MEDS: hyDROXYzine 25 mg Capsule 50 MG PO (22:32)
[2024-02-27] MEDS: acetaminophen 325 mg Tablet 650 MG PO (22:33)
[2024-02-27] MEDS: meropenem 1,000 mg SDV 1000 MG IVP (22:33)
[2024-02-27] MEDS: heparin 5,000 unit/mL INJ 1 mL 5000 UNIT SUBCUT (22:34)
[2024-02-27] MEDS: sodium chloride 0.9% 1,000 ML 75 ML IV (22:42)
[2024-02-27 23:10] LABS: Specific Gravity, Urine 1.049 (1.005-1.030)
[2024-02-27 23:11] LABS: Add Urine Culture? Yes
[2024-02-27 23:52] LABS: Iron 11 ug/dL (37-145); Percent Saturation 3.3 % (20-50); Thyroid Stimulating Hormone 1.15 uIU/mL (0.27-4.20); Total Iron Binding Capacity 327 mcg/dl; Unsaturated Iron Binding 316 ug/dL (112-347); Vitamin B12 492 pg/mL (232-1245)
[2024-02-28] VITALS (10 sets, daily range): BP systolic 92–179; BP diastolic 57–73; PULSE 67–110; RESP 16–28; TEMP 36.5–37.2; O2SAT 91–98
[2024-02-28] MEDS: morphine 4 mg/mL SDV 1 mL 2 MG IVP (01:22)
[2024-02-28 01:52] LABS: C.Diff PCR (Lab) NEGATIVE (Negative)
[2024-02-28] MEDS: meropenem 1,000 mg SDV 1000 MG IVP ×3 (04:51→20:49)
[2024-02-28] MEDS: buPROPion XL (24 HR) 150 mg Tablet PO (05:09)
[2024-02-28 06:15] LABS: Basophils % 0.3 %; Eosinophils % 0.1 %; Hematocrit 29.6 % (36-47); Lymphocytes # 0.8 10^3/uL (0.8-4.8); Lymphocytes % 6.5 %; Mean Corpuscular HGB Conc 31.4 g/dL (30-55); Mean Corpuscular Hemoglobin 23.4 pg (27-33); Mean Corpuscular Volume 74.6 fl (85-98); Mean Platelet Volume 9.1 fL (7.4-10.4); Monocytes % 8.5 %; Neutrophils # 9.69 10^3/uL (1.8-7.7); Neutrophils % 84.3 %; Nucleated Red Blood Cells % 0 %; Platelet Count 316 10^3/cmm (157-399); Red Blood Count 3.97 10^6/uL (3.85-5.65); Red Cell Distribution Width 19.2 % (12.1-15.1); White Blood Count 11.51 10^3/uL (3.29-11.43)
[2024-02-28 06:36] LABS: Alanine Aminotransferase 13 U/L (0-33); Albumin Level 3.3 g/dL (3.5-5.2); Alkaline Phosphatase 134 U/L (35-105); Anion Gap 17.6 (5-19); Aspartate Amino Transferase 13 U/L (0-32); Blood Urea Nitrogen 8 mg/dL (8-23); Calcium 8.1 mg/dL (8.5-10.5); Carbon Dioxide 19 mmol/L (22-29); Chloride 101 mmol/L (98-107); Creatinine Clr Calc Pharmacy 74.5946; Globulin 2.9 g/dL (1.3-4.6); Glomerular Filtration Rate 71.8 mL/min (90-130); Glucose 162 mg/dL (65-115); Magnesium 1.6 mg/dL (1.7-2.3); Osmolality Calculated 282 mOsm/kg (285-295); Phosphorus 3.1 mg/dL (2.5-4.5); Sodium 135 mmol/L (136-145); Total Bilirubin 0.4 mg/dL (0.15-1.2); Total Protein 6.2 g/dL (6.6-8.7)
[2024-02-28 06:38] LABS: Chol HDL Ratio 3.55 mg/dL (0.0-4.40); Cholesterol 78 mg/dL (0-200); HDL Cholesterol 22 mg/dL (60-100); LDL Cholesterol Calculated 32 mg/dL (50-129); LDL HDL Ratio 1.45 RATIO (0.00-3.22); Triglycerides 120 mg/dL (0-150)
[2024-02-28 06:40] LABS: Procalcitonin 2.07 ng/mL (0-0.5)
[2024-02-28 06:42] LABS: Estmated Average Glucose 134; Hemoglobin A1C 6.3 % (4.0-6.0)
[2024-02-28 06:47] LABS: Glucose Point of Care 172 mg/dL (70-110)
[2024-02-28 06:54] LABS: Folate Level 2.9 ng/mL (4.8-37.3)
[2024-02-28 07:20] LABS: Potassium 2.6 mmol/L (3.5-5.1)
[2024-02-28] MEDS: hyDROXYzine 25 mg Capsule 50 MG PO ×3 (09:23→20:49)
[2024-02-28] MEDS: potassium chloride ER 20 mEq Tablet 40 MEQ PO ×5 (09:28→20:49)
[2024-02-28] MEDS: atorvastatin 40 mg Tablet 80 MG PO (09:29)
[2024-02-28] MEDS: famotidine 20 mg Tablet PO ×2 (09:29→17:40)
[2024-02-28] MEDS: acetaminophen 325 mg Tablet 650 MG PO (09:30)
[2024-02-28] MEDS: sodium chloride 0.9% 1,000 ML 999 ML IV (09:32)
--- NOTE | 2024-02-28 10:31 | PC.CHAP ---
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 [] Patient/Family/Request visit [] Outpatient visit [] Follow-up visit [] Physician referral [] Code/Alert [] Routine visit [] Staff referral [] Actively dying [] Patient sleeping [] Family support [] [] Out of room [] Palliative care [] [x] Receiving care in room [] Pre-surgical visit [] Trauma [] Long length of stay [] ICU visit [] Other: Relational/Emotional Strength [] Patient feels connected with others/family/visitors/staff [] Distress [] Loneliness/isolation [] Abandonment Spirituality of Patient [] Person of Megan [] Attends Sabianist of their Megan [] Believes in Prayer [] Reads Bible or Latter-Day materials [] There are Spiritual issues to be addressed Sales Host Interventions [] Prayer [] Active listening [] Non-anxious presence [] Spiritual/emotional support [] Crisis/trauma care [] Spiritual counseling [] Bereavement support [] Provided bereavement packet [] Provided Bible/devotional materials [] Provided toy/stuffed animal, coloring book to patient or family member [] Provided Communion [] Anointing/[place] [] Salvation [] Completed spiritual assessment [] Other: Impact on Illness or Injury [] Angry [] Fearful [] Anxious [] Often cries [] Exhaustion [] Unable to work [] Unable to attend jainism [] Unable to walk/stand [] Unable to read [] Unable to drive [] Unable to eat/drink [] Unable to sleep [] Unable to be with family [] Patient intubated [] Other: Summary Time spent with patient
[2024-02-28] MEDS: sodium chloride 0.9% 1,000 ML 75 ML IV (10:47)
[2024-02-28 10:49] LABS: Glucose Point of Care 156 mg/dL (70-110)
--- NOTE | 2024-02-28 14:09 | P.PN_ITS ---
Subjective 2 Subjective: Today morning examination patient laying in bed complaining of shivers again. She states she has been feeling hot and cold alternatively. Has been having multiple episodes of diarrhea. States she has had a chronic diarrhea for a long time. Vitals/I&O/Wt Last Vital Signs Temp 97.9 F 02/28/24 11:07 Pulse 85 02/28/24 11:07 Resp 16 02/28/24 11:07 BP 92/57 02/28/24 11:07 Pulse Ox 96 02/28/24 11:07 O2 Del Method CPAP 02/28/24 11:07 O2 Flow Rate 2 02/28/24 00:00 02/27/24 02/28/24 02/28/24 22:59 06:59 14:59 Intake Total 2820 / 2820 1000 / 3820 2266.25 / 2266.25 Output Total 200 / 200 Balance 2620 / 2620 1000 / 3620 2266.25 / 2266.25 Weight last 48 hrs Weight 88.723 kg Weight 88.723 kg Weight 88.723 kg Weight 88.451 kg Physical Exam 2 Narrative: General: In distress because of shivering and feeling cold, AO x 3 HEENT: PERRLA, pupils bilaterally equal and reactive Chest: Normal vesicular breath sounds, no added sounds, equal good air entry bilaterally CVS: S1-S2 regular, no murmurs, no tachycardia, no gallops, no rubs Abdomen: Soft, nontender, no organomegaly, bowel sounds present, renal angle tenderness on the left side Neuro: No focal deficits, no facial deformity, AO x3, power 5/5 in all limbs Data 02/28/24 05:42 02/28/24 05:42 Micro: Microbiology 02/27/24 19:02 Blood Culture - Preliminary Blood SPECIMEN COLLECTED 02/27/24 18:58 Blood Culture - Preliminary Blood SPECIMEN COLLECTED A&P Assessment and plan (1) Sepsis: SIRS: Tachycardic, Febrile, Leukocytosis Source: Left pyelonephritis End organ damage: Hypotension Lactic acid within normal limits Patient did receive full sepsis bolus of 30 mL/kg body weight fluid. Bolus normal saline 1 L more. Continue normal saline 75 cc/h. Monitor blood pressures. Keep mean artery pressure 65 mmHg. Follow-up blood culture, urine culture,. Appreciate procalcitonin trend (2) Acute pyelonephritis: With failure of outpatient treatment. Concern for left-sided pyelonephritis. Recurrent UTI as an outpatient. Recently on cefdinir and Bactrim. Most likely patient's urine culture will be sterile as she has been on multiple antibiotics recently. For now as patient has been on multiple antibiotics we will start on broad- spectrum antibiotics with IV meropenem. De-escalate as per culture results. (3) Failure of outpatient treatment: (4) Diarrhea: States chronic diarrhea. Stool for C. difficile negative. Start on loperamide as needed. Patient will need to follow-up with gastroenterology as an outpatient for further workup. (5) Hypokalemia: Most likely in setting of diarrhea. Replace with a 80 mEq of potassium. Repeat BMP in afternoon. Mild hypomagnesemia. Replace with 1 g IV magnesium Plan Type 2 diabetes mellitus: Continue home dose of Lantus. Low-dose protocol insulin. A1c of 6.3. Full code Carb consistent diet Famotidine for PUD prophylaxis Heparin 5000 Q8 hourly for DVT prophylaxis Attestations 2 Medical Necessity Statement*: Requires further hospitalization for management of sepsis in setting of pyelonephritis with failure to outpatient treatment, hypokalemia Diagnoses Sepsis A41.9 Acute pyelonephritis N10 Failure of outpatient treatment Z78.9 Diarrhea R19.7 Hypokalemia E87.6
[2024-02-28] MEDS: magnesium sulfate premix 1 GM/100 ML PIGGYBACK IV (15:43)
--- NOTE | 2024-02-28 15:47 | PHA.VACGOAL ---
Vancomycin Goal - Goal Vancomycin Goal:: 10-15 mg/L Vancomycin Indication:: Other - Therapy Current therapy:: Meropenem Day of therpy:: Day []of [] . Actual body weight (kg): 195 lb 9.6 oz - Data Labs: WBC 11.51 10^3/uL (3.29-11.43) H 02/28/24 05:42 RBC 3.97 10^6/uL (3.85-5.65) 02/28/24 05:42 Hgb 9.30 g/dL (11.27-16.99) L 02/28/24 05:42 Hct 29.6 % (36-47) L 02/28/24 05:42 MCV 74.6 fl (85-98) L 02/28/24 05:42 MCH 23.4 pg (27-33) L 02/28/24 05:42 MCHC 31.4 g/dL (30-55) 02/28/24 05:42 RDW 19.2 % (12.1-15.1) H 02/28/24 05:42 Sodium 135 mmol/L (136-145) L 02/28/24 05:42 Potassium 2.6 mmol/L (3.5-5.1) L* D 02/28/24 05:42 Chloride 101 mmol/L (98-107) 02/28/24 05:42 Carbon Dioxide 19 mmol/L (22-29) L 02/28/24 05:42 Anion Gap 17.6 (5-19) 02/28/24 05:42 BUN 8 mg/dL (8-23) 02/28/24 05:42 Creatinine 0.8 mg/dL (0.5-0.9) 02/28/24 05:42 GFR Calculation 71.8 mL/min (90-130) L 02/28/24 05:42 Treatment plan:: new consult Regimen:: 1250 MG Q12H
[2024-02-28 16:10] LABS: Anion Gap 14.9 (5-19); Blood Urea Nitrogen 8 mg/dL (8-23); Calcium 8.1 mg/dL (8.5-10.5); Carbon Dioxide 19 mmol/L (22-29); Chloride 104 mmol/L (98-107); Creatinine Clr Calc Pharmacy 74.5946; Glomerular Filtration Rate 71.8 mL/min (90-130); Glucose 133 mg/dL (65-115); Osmolality Calculated 280 mOsm/kg (285-295); Sodium 135 mmol/L (136-145)
[2024-02-28 16:11] LABS: Potassium 2.9 mmol/L (3.5-5.1)
[2024-02-28 16:47] LABS: Glucose Point of Care 132 mg/dL (70-110)
[2024-02-28] MEDS: vancomycin 1,250 MG/250 ML PIGGYBACK 166.67 MG IV (17:48)
[2024-02-28 20:29] LABS: MRSA PCR OZH (swab) NOT DETECTED (Not Detecte)
[2024-02-28 20:43] LABS: Glucose Point of Care 218 mg/dL (70-110)
[2024-02-28] MEDS: heparin 5,000 unit/mL INJ 1 mL 5000 UNIT SUBCUT (20:49)
[2024-02-28] MEDS: insulin lispro 100 unit/1 mL SUBCUT (20:52)
[2024-02-29] VITALS (9 sets, daily range): BP systolic 91–133; BP diastolic 63–96; PULSE 71–97; RESP 18–22; TEMP 36.3–37.3; O2SAT 94–98
[2024-02-29] MEDS: sodium chloride 0.9% 1,000 ML 75 ML IV ×2 (02:49→16:19)
[2024-02-29] MEDS: vancomycin 1,250 MG/250 ML PIGGYBACK 166.67 MG IV (04:22)
[2024-02-29] MEDS: meropenem 1,000 mg SDV 1000 MG IVP ×3 (04:23→20:11)
[2024-02-29] MEDS: buPROPion XL (24 HR) 150 mg Tablet PO (04:28)
[2024-02-29 05:43] LABS: Basophils % 0.4 %; Eosinophils # 0.1 10^3/uL (0.0-0.8); Eosinophils % 1.2 %; Hematocrit 27.6 % (36-47); Lymphocytes # 1.1 10^3/uL (0.8-4.8); Lymphocytes % 14.6 %; Mean Corpuscular HGB Conc 30.1 g/dL (30-55); Mean Corpuscular Hemoglobin 22.9 pg (27-33); Mean Corpuscular Volume 76.2 fl (85-98); Mean Platelet Volume 8.9 fL (7.4-10.4); Monocytes # 0.9 10^3/uL (0.2-0.9); Monocytes % 12.8 %; Neutrophils # 5.13 10^3/uL (1.8-7.7); Neutrophils % 70.6 %; Nucleated Red Blood Cells % 0 %; Platelet Count 311 10^3/cmm (157-399); Red Blood Count 3.62 10^6/uL (3.85-5.65); Red Cell Distribution Width 19.3 % (12.1-15.1); White Blood Count 7.27 10^3/uL (3.29-11.43)
[2024-02-29 06:02] LABS: Alanine Aminotransferase 19 U/L (0-33); Alkaline Phosphatase 124 U/L (35-105); Anion Gap 14.7 (5-19); Aspartate Amino Transferase 19 U/L (0-32); Blood Urea Nitrogen 8 mg/dL (8-23); Calcium 8.1 mg/dL (8.5-10.5); Carbon Dioxide 17 mmol/L (22-29); Chloride 107 mmol/L (98-107); Creatinine Clr Calc Pharmacy 74.5946; Globulin 2.6 g/dL (1.3-4.6); Glomerular Filtration Rate 83.7 mL/min (90-130); Glucose 147 mg/dL (65-115); Osmolality Calculated 281 mOsm/kg (285-295); Potassium 3.7 mmol/L (3.5-5.1); Sodium 135 mmol/L (136-145); Total Bilirubin 0.2 mg/dL (0.15-1.2); Total Protein 5.6 g/dL (6.6-8.7)
[2024-02-29 06:10] LABS: Magnesium 1.4 mg/dL (1.7-2.3)
[2024-02-29 06:28] LABS: Glucose Point of Care 152 mg/dL (70-110)
[2024-02-29] MEDS: atorvastatin 40 mg Tablet 80 MG PO (08:29)
[2024-02-29] MEDS: heparin 5,000 unit/mL INJ 1 mL 5000 UNIT SUBCUT ×2 (08:29→20:11)
[2024-02-29] MEDS: hyDROXYzine 25 mg Capsule 50 MG PO ×3 (08:29→20:11)
[2024-02-29] MEDS: famotidine 20 mg Tablet PO ×2 (08:29→18:10)
[2024-02-29] MEDS: insulin lispro 100 unit/1 mL SUBCUT ×2 (08:29→21:03)
--- NOTE | 2024-02-29 09:38 | PC.CHAP ---
Pastoral Care Encounter/Spiritual Assessment Type of Contact [] Declined certified performance technologist visit [] Patient/Family/Request visit [] Outpatient visit [] Follow-up visit [] Physician referral [] Code/Alert [] Routine visit [] Staff referral [] Actively dying [x] Patient sleeping [] Family support [] [] Out of room [] Palliative care [] [] Receiving care in room [] Pre-surgical visit [] Trauma [] Long length of stay [] ICU visit [] Other: Relational/Emotional Strength [] Patient feels connected with others/family/visitors/staff [] Distress [] Loneliness/isolation [] Abandonment Spirituality of Patient [] Person of Megan [] Attends Orthodox of their Megan [] Believes in Prayer [] Reads Bible or Orthodoxy materials [] There are Spiritual issues to be addressed Chemistry Research Assistant Interventions [] Prayer [] Active listening [] Non-anxious presence [] Spiritual/emotional support [] Crisis/trauma care [] Spiritual counseling [] Bereavement support [] Provided bereavement packet [] Provided Bible/devotional materials [] Provided toy/stuffed animal, coloring book to patient or family member [] Provided Communion [] Anointing/[place] [] Salvation [] Completed spiritual assessment [] Other: Impact on Illness or Injury [] Angry [] Fearful [] Anxious [] Often cries [] Exhaustion [] Unable to work [] Unable to attend tenriism [] Unable to walk/stand [] Unable to read [] Unable to drive [] Unable to eat/drink [] Unable to sleep [] Unable to be with family [] Patient intubated [] Other: Summary Time spent with patient
[2024-02-29 11:17] LABS: Glucose Point of Care 105 mg/dL (70-110)
--- NOTE | 2024-02-29 12:13 | PC.SOCIAL ---
IMM updated IMM dated and initialed, copy given to patient and copy placed in chart.
[2024-02-29 12:39] LABS: Campylobacter Group NOT DETECTED (NOT DETECTED); Norovirus GI/GII NOT DETECTED (NOT DETECTED); Rotavirus A NOT DETECTED (NOT DETECTED); Shiga Toxin 1 NOT DETECTED (NOT DETECTED); Shigella Species NOT DETECTED (NOT DETECTED); Vibrio Group NOT DETECTED (NOT DETECTED); Yersinia Enterocolotica NOT DETECTED (NOT DETECTED)
--- NOTE | 2024-02-29 14:57 | P.PN_ITS ---
Subjective 2 Subjective: Documents overnight. Patient has remained hemodynamically stable and afebrile. No more diarrhea. Denies any back pain. More awake and alert Tmax in last 24 hours 99.1 Fahrenheit. Vitals/I&O/Wt Last Vital Signs Temp 97.4 F L 02/29/24 11:03 Pulse 79 02/29/24 14:00 Resp 18 02/29/24 08:00 BP 98/63 02/29/24 11:03 Pulse Ox 94 02/29/24 11:03 O2 Del Method CPAP 02/29/24 11:03 O2 Flow Rate 2 02/28/24 00:00 02/28/24 02/29/24 02/29/24 22:59 06:59 14:59 Intake Total 1310 / 3576.25 1730 / 5306.25 600 / 600 Balance 1310 / 3576.25 1730 / 5306.25 600 / 600 Weight last 48 hrs Weight 88.723 kg Weight 88.723 kg Weight 88.723 kg Physical Exam 2 Narrative: General: In distress because of shivering and feeling cold, AO x 3 HEENT: PERRLA, pupils bilaterally equal and reactive Chest: Normal vesicular breath sounds, no added sounds, equal good air entry bilaterally CVS: S1-S2 regular, no murmurs, no tachycardia, no gallops, no rubs Abdomen: Soft, nontender, no organomegaly, bowel sounds present, renal angle tenderness on the left side Neuro: No focal deficits, no facial deformity, AO x3, power 5/5 in all limbs Data 02/29/24 05:20 02/29/24 05:20 Micro: Microbiology 02/27/24 19:02 Blood Culture - Preliminary Blood Staphylococcus species 02/27/24 14:40 Urine Culture - Preliminary Urine,Clean Catch Gram Negative Rods 02/29/24 05:53 Blood Culture - Preliminary Blood SPECIMEN COLLECTED 02/29/24 05:57 Blood Culture - Preliminary Blood SPECIMEN COLLECTED 02/27/24 18:58 Blood Culture - Preliminary Blood NEGATIVE TO DATE A&P Assessment and plan (1) Sepsis: SIRS: Tachycardic, Febrile, Leukocytosis Source: Left pyelonephritis End organ damage: Hypotension Lactic acid within normal limits Patient did receive full sepsis bolus of 30 mL/kg body weight fluid. Bolus normal saline 1 L more. Continue normal saline 75 cc/h. Monitor blood pressures. Keep mean artery pressure 65 mmHg. Follow-up blood culture, urine culture,. Appreciate procalcitonin trend (2) Acute pyelonephritis: With failure of outpatient treatment. Concern for left-sided pyelonephritis. Recurrent UTI as an outpatient. Recently on cefdinir and Bactrim. Most likely patient's urine culture will be sterile as she has been on multiple antibiotics recently. For now as patient has been on multiple antibiotics we will start on broad- spectrum antibiotics with IV meropenem. De-escalate as per culture results. (3) Failure of outpatient treatment: (4) Diarrhea: States chronic diarrhea. Stool for C. difficile negative. Start on loperamide as needed. Patient will need to follow-up with gastroenterology as an outpatient for further workup. (5) Hypokalemia: Most likely in setting of diarrhea. Replace with a 80 mEq of potassium. Repeat BMP in afternoon. Mild hypomagnesemia. Replace with 1 g IV magnesium Plan Type 2 diabetes mellitus: Continue home dose of Lantus. Low-dose protocol insulin. A1c of 6.3. Full code Carb consistent diet Famotidine for PUD prophylaxis Heparin 5000 Q8 hourly for DVT prophylaxis Plan for the day: Blood culture from admission 1 out of 4 bottles positive for Staphylococcus species. Most likely contaminant. Repeat blood culture sent today. MRSA swab negative. Hold off on vancomycin. Continue with meropenem. Urine culture growing gram-negative rods. Will await sensitivities and speciation for now. Will plan to finish overall 7-day course given concerns for pyelonephritis, recurrent UTI, failure of outpatient treatment. For now continue with IV fluids at 75 cc/h. If remains hemodynamically stable, without nausea or vomiting will discontinue fluids in AM. Hypokalemia resolved today. Replace magnesium 1 g again. Start on folic acid supplementation. Appreciate A1c. Continue with current dose of Lantus. Attestations 2 Medical Necessity Statement*: Requires further hospitalization for management of pyelonephritis in a patient with failure of outpatient treatment, Staphylococcus bacteremia while safe discharge planning is sought. Diagnoses Sepsis A41.9 Acute pyelonephritis N10 Failure of outpatient treatment Z78.9 Diarrhea R19.7 Hypokalemia E87.6
[2024-02-29] MEDS: magnesium sulfate premix 2 GM/50 ML PIGGYBACK IV (16:19)
[2024-02-29 17:00] LABS: Glucose Point of Care 132 mg/dL (70-110)
[2024-02-29] MEDS: folic acid 1 mg Tablet PO (18:10)
[2024-02-29] MEDS: acetaminophen 325 mg Tablet 650 MG PO (18:10)
[2024-02-29 20:25] LABS: Glucose Point of Care 189 mg/dL (70-110)
[2024-02-29] MEDS: insulin glargine 100 units/1 mL 28 UNIT SUBCUT (21:04)
[2024-03-01] VITALS: BP 107/65; PULSE 77; RESP 14; TEMP 36.8; O2SAT 95
[2024-03-01 03:18] LABS: Basophils # 0.1 10^3/uL (0.0-0.1); Basophils % 0.7 %; Eosinophils # 0.3 10^3/uL (0.0-0.8); Eosinophils % 4.1 %; Lymphocytes # 1.8 10^3/uL (0.8-4.8); Lymphocytes % 24.1 %; Mean Corpuscular HGB Conc 32.2 g/dL (30-55); Mean Corpuscular Hemoglobin 23.8 pg (27-33); Mean Platelet Volume 8.4 fL (7.4-10.4); Monocytes # 0.8 10^3/uL (0.2-0.9); Monocytes % 10.9 %; Neutrophils % 59.9 %; Nucleated Red Blood Cells % 0 %; Platelet Count 320 10^3/cmm (157-399); Red Blood Count 3.65 10^6/uL (3.85-5.65); Red Cell Distribution Width 19.7 % (12.1-15.1); White Blood Count 7.34 10^3/uL (3.29-11.43)
[2024-03-01 03:36] LABS: Vancomycin Trough 5.9 ug/mL (10-15)
[2024-03-01 03:37] LABS: Alanine Aminotransferase 24 U/L (0-33); Alkaline Phosphatase 109 U/L (35-105); Anion Gap 14.2 (5-19); Aspartate Amino Transferase 19 U/L (0-32); Blood Urea Nitrogen 6 mg/dL (8-23); Calcium 7.8 mg/dL (8.5-10.5); Carbon Dioxide 18 mmol/L (22-29); Chloride 108 mmol/L (98-107); Creatinine Clr Calc Pharmacy 74.5946; Globulin 2.6 g/dL (1.3-4.6); Glucose 101 mg/dL (65-115); Osmolality Calculated 282 mOsm/kg (285-295); Potassium 3.2 mmol/L (3.5-5.1); Sodium 137 mmol/L (136-145); Total Bilirubin 0.2 mg/dL (0.15-1.2); Total Protein 5.6 g/dL (6.6-8.7)
[2024-03-01 03:43] LABS: Magnesium 1.6 mg/dL (1.7-2.3)
[2024-03-01 04:00] VITALS: BP 117/68; PULSE 87; RESP 16; TEMP 36.9; O2SAT 97
[2024-03-01] MEDS: sodium chloride 0.9% 1,000 ML 75 ML IV (05:14)
[2024-03-01] MEDS: buPROPion XL (24 HR) 150 mg Tablet PO (05:15)
[2024-03-01] MEDS: meropenem 1,000 mg SDV 1000 MG IVP (05:16)
[2024-03-01 06:23] LABS: Glucose Point of Care 105 mg/dL (70-110)
[2024-03-01 07:49] VITALS: BP 109/73; PULSE 79; TEMP 36.3; O2SAT 95
[2024-03-01] MEDS: folic acid 1 mg Tablet PO (08:26)
[2024-03-01] MEDS: hyDROXYzine 25 mg Capsule 50 MG PO (08:26)
[2024-03-01] MEDS: famotidine 20 mg Tablet PO (08:26)
[2024-03-01] MEDS: atorvastatin 40 mg Tablet 80 MG PO (08:26)
[2024-03-01] MEDS: heparin 5,000 unit/mL INJ 1 mL 5000 UNIT SUBCUT (08:26)
--- NOTE | 2024-03-01 10:35 | P.DS_ITS ---
Discharge Providers Date of Admission: 02/27/24 18:31 Date of Discharge: March 01, 2024 Attending Provider at Admission: Quan Suarez MD Attending Provider at Discharge: Quan Suarez MD Primary Care Provider: Shirley Guerra MD Diagnoses at Discharge Discharge Diagnosis (1) Sepsis: Status: Acute (2) Acute pyelonephritis: Status: Acute (3) Failure of outpatient treatment: Status: Acute (4) Diarrhea: Status: Acute (5) Hypokalemia: Status: Acute Reason for Visit Reason for Visit: fever,n,v,boil, possible uti? Hospital Course Hospital Course Rachel Chawla is a 68 year old female with past medical history of hypertension, type 2 diabetes mellitus, recurrent UTIs who has been worked up as an outpatient and needs to follow-up with urology presents to the ER today because of dysuria, chills, fever which has been ongoing for last 5 days worsen ing for last 2 days along with back pain which started yesterday. As per patient she has been having fever with chills for the past 2 days. She has had multiple episodes of UTI since October 2023 for which she has been on multiple antibiotics. Most recently she has been on cefdinir and Bactrim. In the ER CT on pelvis was done which was concerning for left pyelonephritis hence medicine was consulted. On examination patient is laying in bed distress because of shivering, complaining of feeling cold. Patient was admitted to the hospital further evaluation management of sepsis in setting of pyelonephritis. She was given fluid resuscitation after which her blood pressures were more stable. She was started on broad-spectrum IV antibiotics. Patient has remained afebrile for last 48 hours. Blood cultures from admission 1 out of 4 bottles were positive for Staphylococcus the urine culture came back positive for E. coli. Blood cultures from admission are most likely contaminant. Repeat blood cultures have so far been negative. During hospitalization she did have frequent episodes of diarrhea. C. difficile was ruled out. It is believed her frequent diarrhea is most likely in setting of high coffee intake. She had significant hypokalemia after diarrhea which have to be replaced with frequent oral potassium supplementation. Her potassium levels remain more stable once her diarrhea had resolved. She is discharged in hemodynamically stable condition on oral Levaquin for 10 more days with advised to follow-up with a primary care provider within next 2 weeks for possible referral for urologist for recurrent UTIs. Physical Exam Narrative: General: In distress because of shivering and feeling cold, AO x 3 HEENT: PERRLA, pupils bilaterally equal and reactive Chest: Normal vesicular breath sounds, no added sounds, equal good air entry bilaterally CVS: S1-S2 regular, no murmurs, no tachycardia, no gallops, no rubs Abdomen: Soft, nontender, no organomegaly, bowel sounds present, renal angle tenderness on the left side Neuro: No focal deficits, no facial deformity, AO x3, power 5/5 in all limbs Discharge Data Studies Completed and Pending Completed Studies During Hospitalization Category Date Time Status CT abdomen pelvis w con* [id number] Stat Cat Scan 02/27/24 16:40 Completed XR chest 1V portable [id number] Stat Exams 02/27/24 19:11 Completed Pending at discharge Category Date Time Status Blood Culture Stat Lab 02/27/24 19:02 Results Blood Culture Stat Lab 02/28/24 15:35 Results Calprotectin Fecal Stat Lab 02/27/24 23:46 Ordered Gastrointestinal Pathogen Lyons Routine Lab 02/27/24 23:46 Results Radiology Impressions Abdomen/Pelvis CT 02/27/24 16:40 IMPRESSION: 1. Findings above regarding the left kidney concerning for pyelonephritis and cystitis. Correlate with urinalysis to exclude cystitis/pyelonephritis combination. 2. Findings involving the central small bowel loops concerning for enteritis without evidence of bowel obstruction. 3. Incidental/chronic findings as above. COMMENTS: Consistent with the [employer]'s Incidental Findings Committee white paper (J Am Tariq Radiol 2018): Any incidental renal lesion less than 1 cm or classified as too small to characterize, or any incidental cystic renal lesion characterized as simple-appearing, is likely benign. No follow-up imaging is recommended for these lesions per consensus recommendations based on imaging criteria. Chest X-Ray 02/27/24 19:11 IMPRESSION: No acute findings. Laboratory Results WBC 7.34 10^3/uL (3.29-11.43) 03/01/24 03:11 RBC 3.65 10^6/uL (3.85-5.65) L 03/01/24 03:11 Hgb 8.70 g/dL (11.27-16.99) L 03/01/24 03:11 Hct 27.0 % (36-47) L 03/01/24 03:11 MCV 74.0 fl (85-98) L 03/01/24 03:11 MCH 23.8 pg (27-33) L 03/01/24 03:11 MCHC 32.2 g/dL (30-55) D 03/01/24 03:11 RDW 19.7 % (12.1-15.1) H 03/01/24 03:11 Plt Count 320 10^3/cmm (157-399) 03/01/24 03:11 MPV 8.4 fL (7.4-10.4) 03/01/24 03:11 Neut % (Auto) 59.9 % 03/01/24 03:11 Lymph % (Auto) 24.1 % 03/01/24 03:11 [place] % (Auto) 10.9 % 03/01/24 03:11 Eos % (Auto) 4.1 % 03/01/24 03:11 Baso % (Auto) 0.7 % 03/01/24 03:11 Neut # (Auto) 4.40 10^3/uL (1.8-7.7) 03/01/24 03:11 Lymph # (Auto) 1.8 10^3/uL (0.8-4.8) 03/01/24 03:11 [place] # (Auto) 0.8 10^3/uL (0.2-0.9) 03/01/24 03:11 Eos # (Auto) 0.3 10^3/uL (0.0-0.8) 03/01/24 03:11 Baso # (Auto) 0.1 10^3/uL (0.0-0.1) 03/01/24 03:11 Nucleated RBC % (auto) 0 % 03/01/24 03:11 Nucleated RBCs # 0.0 /100WBC 03/01/24 03:11 Sodium 137 mmol/L (136-145) 03/01/24 03:11 Potassium 3.2 mmol/L (3.5-5.1) L 03/01/24 03:11 Chloride 108 mmol/L (98-107) H 03/01/24 03:11 Carbon Dioxide 18 mmol/L (22-29) L 03/01/24 03:11 Anion Gap 14.2 (5-19) 03/01/24 03:11 BUN 6 mg/dL (8-23) L 03/01/24 03:11 Creatinine 0.6 mg/dL (0.5-0.9) 03/01/24 03:11 GFR Calculation 100.0 mL/min (90-130) 03/01/24 03:11 Glucose 101 mg/dL (65-115) 03/01/24 03:11 POC Glucose 105 mg/dL (70-110) 03/01/24 06:18 Estimat Average Glucose 134 02/28/24 05:42 Hemoglobin A1c 6.3 % (4.0-6.0) H 02/28/24 05:42 Calculated Osmolality 282 mOsm/kg (285-295) L 03/01/24 03:11 Lactic Acid 1.3 mmol/L (0.5-2.2) 02/27/24 15:37 Calcium 7.8 mg/dL (8.5-10.5) L 03/01/24 03:11 Phosphorus 3.1 mg/dL (2.5-4.5) 02/28/24 05:42 Magnesium 1.6 mg/dL (1.7-2.3) L 03/01/24 03:11 Iron 11 ug/dL (37-145) L 02/27/24 16:37 TIBC 327 mcg/dl 02/27/24 16:37 % Saturation 3.3 % (20-50) L 02/27/24 16:37 Unsat Iron Binding 316 ug/dL (112-347) 02/27/24 16:37 Total Bilirubin 0.2 mg/dL (0.15-1.2) 03/01/24 03:11 AST 19 U/L (0-32) 03/01/24 03:11 ALT 24 U/L (0-33) 03/01/24 03:11 Alkaline Phosphatase 109 U/L (35-105) H 03/01/24 03:11 Total Protein 5.6 g/dL (6.6-8.7) L 03/01/24 03:11 Albumin 3.0 g/dL (3.5-5.2) L 03/01/24 03:11 Globulin 2.6 g/dL (1.3-4.6) 03/01/24 03:11 Triglycerides 120 mg/dL (0-150) 02/28/24 05:42 Cholesterol 78 mg/dL (0-200) 02/28/24 05:42 LDL Cholesterol, Calc 32 mg/dL (50-129) L 02/28/24 05:42 HDL Cholesterol 22 mg/dL (60-100) L 02/28/24 05:42 LDL/HDL Ratio 1.45 RATIO (0.00-3.22) 02/28/24 05:42 Cholesterol/HDL Ratio 3.55 mg/dL (0.0-4.40) 02/28/24 05:42 Vitamin B12 492 pg/mL (232-1245) 02/27/24 16:37 Folate 2.9 ng/mL (4.8-37.3) L 02/28/24 05:42 Procalcitonin 2.07 ng/mL (0-0.5) H 02/28/24 05:42 TSH 1.15 uIU/mL (0.27-4.20) 02/27/24 16:37 Urine Color Dark yellow (Yellow) A 02/27/24 21:15 Urine Appearance Turbid (CLEAR) A 02/27/24 21:15 Urine pH 6.0 (5-7) 02/27/24 21:15 Ur Specific Anthony 1.049 (1.005-1.030) H 02/27/24 21:15 Urine Protein 1+ (Negative) A 02/27/24 21:15 Urine Glucose (UA) Negative (Normal) 02/27/24 21:15 Urine Ketones Negative (Negative) 02/27/24 21:15 Urine Blood 2+ (Negative) A 02/27/24 21:15 Urine Nitrate Positive (Negative) A 02/27/24 21:15 Urine Bilirubin 1+ (Negative) H 02/27/24 21:15 Urine Urobilinogen 1.0 mg/dL (Negative) 02/27/24 21:15 Ur Leukocyte Esterase 2+ (Negative) A 02/27/24 21:15 Urine RBC 6-10 /hpf (0-2) 02/27/24 21:15 Urine WBC >100 /hpf (0-5) H 02/27/24 21:15 Ur Squamous Epith Cells 0-5 /hpf (0-5) 02/27/24 21:15 Amorphous Sediment Not Reportable 02/27/24 21:15 Urine Bacteria None seen /hpf (NONE) 02/27/24 21:15 Hyaline Casts 0.40 /lpf 02/27/24 21:15 Nasal MRSA (PCR) Not detected (Not Detecte) 02/28/24 18:28 Stool Rotavirus A PCR Not detected (NOT DETECTED) 02/28/24 00:30 Stl Salmonella enterica PCR Not detected (NOT DETECTED) 02/28/24 00:30 Stool Shigella PCR Not detected (NOT DETECTED) 02/28/24 00:30 St Y.enterocolitica PCR Not detected (NOT DETECTED) 02/28/24 00:30 Stl Vibrio cholerae PCR Not detected (NOT DETECTED) 02/28/24 00:30 Stl Norovirus GI/GII PCR Not detected (NOT DETECTED) 02/28/24 00:30 Vancomycin Trough 5.9 ug/mL (10-15) L 03/01/24 03:11 Campylobacter (PCR) Not detected (NOT DETECTED) 02/28/24 00:30 C. difficile (PCR) Negative (Negative) 02/28/24 00:30 Coronavirus (PCR) Negative (Negative) 02/27/24 14:53 Influenza A (PCR) Negative (Negative) 02/27/24 14:53 Influenza Type B (PCR) Negative (Negative) 02/27/24 14:53 RSV (PCR) Negative (Negative) 02/27/24 14:53 Shiga Toxin 1 Not detected (NOT DETECTED) 02/28/24 00:30 Shiga Toxin 2 Not detected (NOT DETECTED) 02/28/24 00:30 Vitals Last Vital Signs Temp 97.3 F L 03/01/24 07:49 Pulse 79 03/01/24 07:49 Resp 16 03/01/24 04:00 BP 109/73 03/01/24 07:49 Pulse Ox 95 03/01/24 07:49 O2 Del Method Room Air 03/01/24 04:00 O2 Flow Rate 2 02/28/24 00:00 Discharge Plan Discharge Patient Disposition: Home Condition: Stable Prescriptions: New levofloxacin 500 mg tablet 500 mg PO Q24H 10 Days Qty: 10 0RF Continued atorvastatin 80 mg tablet 80 mg PO DAILY hydroxyzine HCl 50 mg tablet 50 mg PO TID lisinopril 2.5 mg tablet 2.5 mg PO DAILY bupropion HCl 150 mg tablet extended release 24 hr 150 mg PO QAM insulin glargine [Lantus Solostar U-100 Insulin] 100 unit/mL (3 mL) insulin pen 28 unit SUBCUT QPM Bydureon BCise 2 mg/0.85 mL auto-injector 2 mg SUBCUT Q7D Discontinued metformin 500 mg tablet extended release 24 hr 500 mg PO TID Discharge Orders: Discharge Order (Routine); Ordered 03/01/24 Ordered By: Quan Suarez Referrals: Shirley Guerra MD [Primary Care Provider] - 03/08/24 10:00 am Discharge Diet: Cardiac and Diabetic Discharge Activity: Resume usual activity and Increase activity as tolerated Patient Instructions: Levofloxacin (By mouth), Sepsis (GEN), Opioid Safety, Pyelonephritis Activity Restrictions/Additional Instructions: Take Levaquin which is the antibiotic for next 10 days. Do not take metformin for now. Try to restrict your coffee intake to less than 2 cups a day. Take [id number] loperamide as needed for diarrhea. Discharge Attestations Time Spent in Discharge Care*: greater than 30 min Specific Discharge Activities: educating patient, discussing with pcp/other providers, discussing with briefcase sewer/social workers/dc planners, documenting/other paperwork and evaluating patient/reviewing data Status at Discharge: Cognitive status at discharge: cognitively intact , Behavioral status at discharge: cooperative , Functional status at discharge: independent ambulation , Overall status at discharge: patient is back to baseline Quality Metrics Clinical Quality Measures [ No reported AMI, CVA or VTE this stay] Coding Level of Care Code 77813 Total time (in minutes) for Discharge: 60 Diagnoses Sepsis A41.9 Acute pyelonephritis N10 Failure of outpatient treatment Z78.9 Diarrhea R19.7 Hypokalemia E87.6
[2024-03-01 10:53] LABS: Glucose Point of Care 121 mg/dL (70-110)
[2024-03-01] MEDS: potassium chloride ER 20 mEq Tablet 80 MEQ PO (11:04)
[2024-03-01 11:17] VITALS: BP 145/94; PULSE 79; RESP 17; TEMP 36.6; O2SAT 93
[2024-03-01 13:39] VITALS: BP 145/94; PULSE 79; RESP 17; TEMP 36.6; O2SAT 93
== END 2024-03-01 13:41 | disposition home or self-care (01) | DRG 872 ==
LOC: ER 18:10 → MEDSURG 19:17
PROVIDERS: Internal Medicine; Physician Assistant; Admitting Provider Student in an Organized Health Care Education/Training Program; Emergency Provider Physician Assistant; PCP Internal Medicine; Visit Provider Student in an Organized Health Care Education/Training Program
DX: A41.9 Sepsis, unspecified organism (principal); N10 Acute pyelonephritis; I95.9 Hypotension, unspecified; R65.20 Severe sepsis without septic shock; B96.20 Unspecified Escherichia coli [E. coli] as the cause of diseases classified elsewhere; K52.9 Noninfective gastroenteritis and colitis, unspecified; E87.6 Hypokalemia; I10 Essential (primary) hypertension; E11.9 Type 2 diabetes mellitus without complications; F17.290 Nicotine dependence, other tobacco product, uncomplicated; Z87.440 Personal history of urinary (tract) infections; Z79.84 Long term (current) use of oral hypoglycemic drugs; Z79.4 Long term (current) use of insulin
CPT/HCPCS: 0241U; 36415; 36416; 71045; 74177; 80048; 80053; 80061; 80202; 81001; 82607; 82746; 82962; 83036; 83540; 83550; 83605; 83735; 83993; 84100; 84145; 84443; 85025; 87040; 87077; 87086; 87150; 87186; 87205; 87493; 87506; 93005; 94660; 94664; 96361; 96372; 96374; 96375; 99285; J0131; J0696; J1644; J1815; J2185; J2270; J3370; J3475; J7030

== ENCOUNTER 2024-08-13 14:31 | Outpatient (CLI) | payer MEDICARE, SELFPAY ==
--- NOTE | 2024-08-13 14:34 | XR_ITS ---
WS: [id number] SCREENING DEXA SCAN [place] CLINICAL INFORMATION: ASYMPTOMATIC POSTMENOPAUSAL STATUS COMPARISON: None. FINDINGS: The L1-L4 bone mineral density measures 1.354 g/cm2. This corresponds to a T score score of 1.5 and Z score of 2.5. Left femoral neck bone mineral density measures 0.941 g/cm2. This corresponds to a T score of -0.5 and Z score of 0.4. Right femoral neck bone mineral density measures 0.957 g/cm2. This corresponds to a T score -0.4of and Z score of 0.5. Mean femoral neck bone mineral density measures 0.949 g/cm2. This corresponds to a T score of -0.5 and Z score of 0.4. XR/XR DEXA axial skeleton* [id number] IMPRESSION: Normal bone mineralization. Patient's FRAX calculated 10 year probability for major osteoporotic fracture i s 10.4% and osteoporotic hip fracture is 2.4%.
== END 2024-08-13 14:32 | disposition home or self-care (01) ==
LOC: RAD 14:31
PROVIDERS: PCP Internal Medicine; Visit Provider Internal Medicine
DX: Z78.0 Asymptomatic menopausal state (principal)
CPT/HCPCS: 77080

== ENCOUNTER 2024-12-14 06:32 | Outpatient (CLI) | payer MEDICARE, SELFPAY ==
--- NOTE | 2024-12-14 06:42 | CT_ITS ---
WS: [email or web address] LDCT LUNG CANCER SCREENING TECHNIQUE: Noncontrast CT of the chest with coronal and sagittal reformatted images. CLINICAL INFORMATION: SCREENING COMPARISON: 2023 DLP: 84.31 mGy.cm DIvol: Mean CTDIvol: 1.80 (mGy) All CT scans at [facility] use at least one of these dose optimization techniques: automated exposure control; mA and/or kV adjustment per patient size (includes targeted exams where dose is matched to clinical indication); or iterative reconstruction. FINDINGS: Stable 5 mm nodule LEFT upper lobe. 5 mm nodule RIGHT middle lobe. Additional scattered micronodules bilaterally similar to previous. No new suspicious pulmonary parenchymal normalities. No mediastinal or hilar lymphadenopathy. No axillary lymphadenopathy. Mild aortic calcification. Stable calcified RIGHT thyroid nodule. Small esophageal hiatal hernia. Mild thoracic curve. Mild thoracic kyphosis. Anterior hypertrophic changes thoracic spine. Cholecystectomy clips. Adrenal glands are normal. CT/CT lung screening [id number] IMPRESSION: LUNG-RADS: 2-Benign Appearance or Behavior FOLLOW UP: 12 Month: Continue annual screening with LDCT
--- NOTE | 2024-12-14 07:14 | MM_ITS ---
WS: [id number] BILATERAL SCREENING DIGITAL TOMOSYNTHESIS MAMMOGRAM WITH CAD HISTORY: SCREENING COMPARISON: 12/07/2023, 11/17/2022 and 11/16/2021 Bilateral CC and MLO views with tomosynthesis and synthetic mammography submitted. Computer aided detection analyzed. Breast composition: There are scattered areas of fibroglandular density. No suspicious masses, microcalcifications or architectural distortion. MM/MM scr BI tomosynthesis [id number] IMPRESSION: BI-RADS: 1 - Negative. FOLLOW UP: 1 Year Follow-up
== END 2024-12-14 06:33 | disposition home or self-care (01) ==
LOC: RAD 06:35
PROVIDERS: PCP Internal Medicine; Visit Provider Internal Medicine
DX: Z12.31 Encounter for screening mammogram for malignant neoplasm of breast (principal); Z12.2 Encounter for screening for malignant neoplasm of respiratory organs; Z87.891 Personal history of nicotine dependence; R92.323 Mammographic fibroglandular density, bilateral breasts; I70.0 Atherosclerosis of aorta; K44.9 Diaphragmatic hernia without obstruction or gangrene; M43.9 Deforming dorsopathy, unspecified; M40.204 Unspecified kyphosis, thoracic region; M51.34 Other intervertebral disc degeneration, thoracic region; Z90.49 Acquired absence of other specified parts of digestive tract
CPT/HCPCS: 71271; 77063; 77067